=== PATIENT | male | born 1955 | race Caucasian/White ===

== ENCOUNTER 2025-05-01 09:19 | Outpatient (CLI) | payer MEDICARE, BC ==
--- NOTE | 2025-05-01 12:37 | RADIOLOGY REPORT ---
CLINICAL INDICATION: PAIN IN RIGHT KNEE TECHNIQUE: Multiplanar, multisequence MRI of the right knee was performed without contrast. Contrast: None. COMPARISON: None FINDINGS: Joint space and synovium: There is small knee joint effusion. There is no synovitis. There is a Bowser's cyst measuring 7.1 cm. Bones and articular cartilage: There is no evidence of acute fracture or bone marrow edema. The alignment is normal. There is multifocal high-grade articular cartilage loss in the lateral patellar facet with subchondral cysts. There is chondral thinning in the medial patellar facet. Diffuse chondral loss is noted on both sides of the medial compartment with exposed bone. There is medial compartment joint space narrowing and there are osteophytes. Lateral compartment joint space narrowing and osteophytes. The articular cartilage in the lateral compartment is maintained. Menisci: There is a complex tear in the anterior horn to posterior horn of the medial meniscus. There is a tear of the posterior horn body of the lateral meniscus. Tendons and ligaments: The tendons in the posterior knee are intact. The extensor mechanism is intact. The anterior cruciate ligament is intact. The posterior cruciate ligament is intact. The medial collateral ligament and the lateral collateral ligament stabilizing complex are intact. Muscles: There is edema in the gastrocnemius and soleus muscles. Other: None. IMPRESSION: 1. Complex tear in the anterior horn to posterior horn of the medial meniscus of the right knee. 2. 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 3. Tear of the posterior horn and body of the lateral meniscus. 4. Small knee joint effusion. 5. Bowser's cyst measuring 7.1 cm.
--- NOTE | 2025-05-01 13:25 | RADIOLOGY REPORT ---
CLINICAL INDICATION: PAIN R KNEE AND PAIN IN L KNEE TECHNIQUE: Multiplanar, multisequence MRI of the left knee was performed without contrast. Contrast: None. COMPARISON: MR MRI LOWER EXTREMITY RIGHT on DOS: 05/01/25 FINDINGS: Joint space and synovium: There is small knee joint effusion. No synovitis. There is fluid in between the medial head of the gastrocnemius and the semimembranosus which may represent recent rupture of the Bowser's cyst. Bones and articular cartilage: There is no evidence of acute fracture. There is bone marrow edema in the medial tibial plateau. The alignment is normal. Full-thickness articular cartilage loss is noted in the medial patellar facet and near full-thickness articular cartilage loss in the lateral patellar facet with subchondral bone marrow edema. There is diffuse chondral thinning on both sides of the medial compartment. There is medial joint space narrowing. Lateral compartment articular cartilage is intact. Menisci: There is a complex tear in the posterior horn body of the medial meniscus. Posterior root is torn. The lateral meniscus is intact. Tendons and ligaments: The tendons in the posterior knee are intact. The extensor mechanism is intact. The anterior cruciate ligament is intact. The posterior cruciate ligament is intact. The medial collateral ligament and the lateral collateral ligament stabilizing complex are intact. Muscles: Regional muscles are preserved in bulk and signal characteristics. Other: None. IMPRESSION: 1. Complex tear in the posterior horn and body of the medial meniscus of the left knee. Posterior root is also torn. 2. 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 3. Bowser's cyst with evidence of recent rupture. HS:Y
== END 2025-05-01 23:59 | disposition home or self-care (01) ==
LOC: MRI02 09:19
PROVIDERS: ATTEND Nurse Practitioner
DX: S83.242A Other tear of medial meniscus, current injury, left knee, initial encounter (principal); S83.241A Other tear of medial meniscus, current injury, right knee, initial encounter; S83.281A Other tear of lateral meniscus, current injury, right knee, initial encounter; M17.0 Bilateral primary osteoarthritis of knee; M25.462 Effusion, left knee; M25.461 Effusion, right knee; M71.22 Synovial cyst of popliteal space [Baker], left knee; M71.21 Synovial cyst of popliteal space [Baker], right knee; R60.0 Localized edema; M25.561 Pain in right knee; M25.562 Pain in left knee; G89.29 Other chronic pain; X58.XXXA Exposure to other specified factors, initial encounter; Y93.89 Activity, other specified; Y92.89 Other specified places as the place of occurrence of the external cause; Y99.8 Other external cause status
CPT/HCPCS: 73721

== ENCOUNTER 2025-05-22 08:20 | Outpatient (CLI) | payer MEDICARE, BC ==
--- NOTE | 2025-05-22 11:28 | RADIOLOGY REPORT ---
PROCEDURE: MRI lumbar spine without contrast. INDICATION: ENCOUNTER FOR OTHER PREPROCEDURAL EXAMINATION COMPARISON: None TECHNIQUE: MRI lumbar spine without intravenous contrast utilizing multiplanar, multisequence technique. FINDINGS: The alignment of the lumbar spine vertebral bodies is preserved. There is posterior instrumented fusion at L3 - L5 with interbody prostheses at L3-L4 and L4-L5. The vertebral body heights are maintained. There is intervertebral disc space narrowing at L1-L2 and L2-L3 with diminished T2 signal intensity reflecting disc desiccation. The conus medullaris is normal in signal characteristics and terminates at the T12-L1 level. Paraspinal muscles are unremarkable. At the T12-L1 level, there is no evidence of central spinal canal or neuroforaminal stenosis. At the L1-L2 level, there is posterior disc bulge without significant spinal or neural foraminal stenosis. There is bilateral ligamentum flavum thickening. At the L2-L3 level, there is broad-based posterior disc bulge, ligamentum flavum thickening and facet hypertrophy. There is mild spinal stenosis. There is moderate bilateral neural foraminal stenosis. At the L3-L4 level, there is posterior osteophytes, ligamentum flavum thickening and facet hypertrophy. There is mild spinal stenosis. There is moderate bilateral neural foraminal stenosis. At the L4-L5 level, there is broad-based posterior disc bulge, ligamentum flavum thickening and facet hypertrophy. There is moderate spinal stenosis. There is severe right and moderate left neural foraminal stenosis. At the L5-S1 level, there is no evidence of central spinal canal or neuroforaminal stenosis. There is bilateral facet hypertrophy. Other: None. IMPRESSION: 1. Posterior instrumented fusion at L3-L5 with interbody prostheses at L3-L4 and L4-L 2. Multilevel degenerative changes in the lumbar spine. 3. This includes moderate spinal stenosis at L4-L5. 4. There is severe right and moderate left neural foraminal stenosis at L4-L
== END 2025-05-22 23:59 | disposition home or self-care (01) ==
LOC: MRI02 08:20
PROVIDERS: ATTEND Physician Assistant
DX: Z01.818 Encounter for other preprocedural examination (principal); M47.817 Spondylosis without myelopathy or radiculopathy, lumbosacral region; M51.360 Other intervertebral disc degeneration, lumbar region with discogenic back pain only; M48.061 Spinal stenosis, lumbar region without neurogenic claudication; M43.26 Fusion of spine, lumbar region
CPT/HCPCS: 72148